=== PATIENT | male | born 1940 | race Caucasian/White ===

== ENCOUNTER 2022-08-26 11:13 | Inpatient (IN) | payer MEDICARE, BC ==
[~2022-08-26] VITALS: Ht 175.3 cm; Wt 98.6 kg
--- NOTE | 2022-08-26 | NUR ---
RECD PT IN BED, AWAKE, ALERT,ORIENTED X1, NO ACUTE DISTRESS NOTED, NEEDS ATTENDED TO.KEPT DRY AND CLEAN,IVF INFUSING WELL.
[2022-08-26] MEDS ORDERED: ONDANSETRON 4 MG/2 ML VIAL ONE (11:23)
[2022-08-26] MEDS ORDERED: PANTOPRAZOLE SODIUM 40 MG VIAL ONE ×2 (11:23→11:42)
--- NOTE | 2022-08-26 11:23 | NUR ---
Pt seen by MD for bedside eval. Safety measures in place. Will continue to monitor.
[2022-08-26] MEDS ORDERED: ONDANSETRON 4 MG/2 ML VIAL IV ONE (11:30)
[2022-08-26] MEDS ORDERED: PANTOPRAZOLE SODIUM 40 MG VIAL IV ONE (11:30)
[2022-08-26] MEDS ORDERED: PANTOPRAZOLE SODIUM IV 80 MG in IV DEXTROSE 5% 100 ML IV ONE (11:30)
[2022-08-26] MEDS ORDERED: IV NORMAL SALINE 500 ML BAG IV ONE (11:30)
[2022-08-26 11:37] LABS: HEMATOCRIT 32.1 % (36.7-47.1); MEAN CORPUSCULAR HEMOGLOBIN 29.7 uug (23.8-33.4); MEAN CORPUSCULAR VOLUME 91.5 fL (73.0-96.2); PLATELET COUNT (AUTO) 214 K/uL (152-348)
[2022-08-26] MEDS ORDERED: AMIO200T7 PO (11:40)
[2022-08-26] MEDS ORDERED: MENT3.5O TOP (11:40)
[2022-08-26] MEDS ORDERED: VITS42.53 TOP (11:40)
[2022-08-26] MEDS ORDERED: ATOR40TA PO (11:42)
[2022-08-26] MEDS ORDERED: CETI-90 PO (11:42)
[2022-08-26] MEDS ORDERED: AMLO2.5T2 PO (11:42)
[2022-08-26] MEDS ORDERED: CLOP75TA33 PO (11:43)
[2022-08-26] MEDS ORDERED: DOCU100C36 PO (11:43)
[2022-08-26] MEDS ORDERED: APIX2.5T PO (11:43)
[2022-08-26 11:45] LABS: CARBON DIOXIDE 25 mmol/L (21-32); CHLORIDE 111 mmol/L (98-107); CREATININE 2.2 mg/dL (0.6-1.3); GLUCOSE 232 mg/dL (74-106); POTASSIUM 4.6 mmol/L (3.5-5.1); UREA NITROGEN, BLOOD 39 mg/dL (7-18)
[2022-08-26] MEDS ORDERED: MENT396L TOP (11:45)
[2022-08-26] MEDS ORDERED: FURO-151 PO (11:45)
[2022-08-26] MEDS ORDERED: DAPA10TA PO (11:45)
[2022-08-26] MEDS ORDERED: SITA50TA PO (11:47)
[2022-08-26] MEDS ORDERED: LEVO750T46 PO (11:47)
[2022-08-26] MEDS ORDERED: INSU100V7 SUBCUT (11:47)
[2022-08-26] MEDS ORDERED: LEVO125C4 PO (11:49)
[2022-08-26] MEDS ORDERED: INSU100I4 SUBCUT (11:49)
[2022-08-26] MEDS ORDERED: MUPI22OI2 TOP (11:49)
[2022-08-26 11:50] LABS: ALANINE AMINOTRANSFERASE 29 U/L (16-63); ALKALINE PHOSPHATASE 117 U/L (50-136); ASPARTATE AMINOTRANSFERASE 20 U/L (15-37); BILIRUBIN,DIRECT 0.2 mg/dL (0.0-0.2); BILIRUBIN,TOTAL 0.4 mg/dL (0.2-1.0); TOTAL PROTEIN, SERUM 5.8 g/dL (6.4-8.2)
[2022-08-26] MEDS ORDERED: TRIA80OI2 TOP (11:52)
[2022-08-26] MEDS ORDERED: NYST15PO3 TOP (11:52)
[2022-08-26] MEDS ORDERED: SENN-18 PO (11:52)
[2022-08-26] MEDS ORDERED: [UNRECOGNIZED DRUG - CODE] PO (11:54)
[2022-08-26] MEDS ORDERED: ZINC30TA2 PO (11:54)
[2022-08-26] MEDS ORDERED: [UNRECOGNIZED DRUG - CODE] TOP (11:54)
[2022-08-26] MEDS ORDERED: BENZ200C53 PO (11:57)
[2022-08-26] MEDS ORDERED: ACET325T53 PO (11:57)
[2022-08-26] MEDS ORDERED: ZINC56.713 TOP (11:57)
[2022-08-26 11:58] LABS: LIPASE 33 U/L (73-393)
[2022-08-26] MEDS ORDERED: BISA10SU61 RC (12:00)
[2022-08-26] MEDS ORDERED: LACT10SO58 PO (12:00)
--- NOTE | 2022-08-26 12:35 | NUR ---
Patient cleaned of large amount of bloody stool at this time. remains at bedside, updated on plan of care, aware will be admitted to the hospital and has been seen by admitting MD. Side rails remain up, will continue to monitor.
--- NOTE | 2022-08-26 12:39 | NUR ---
COVID test in progress.
[2022-08-26] MEDS ORDERED: LACTULOSE PO SCH (12:45)
[2022-08-26] MEDS ORDERED: ONDANSETRON 4 MG/2 ML VIAL IV PRN (12:45)
[2022-08-26] MEDS ORDERED: MAGNESIUM HYDROXIDE 30 ML LIQUID UDC PO PRN (12:45)
[2022-08-26] MEDS ORDERED: Medication Not On Formulary EA (Benzonatate 200 MG) PO SCH (12:45)
[2022-08-26] MEDS ORDERED: REMEDY ESSENTIAL ZINC PASTE 113 GM TP PRN (12:45)
[2022-08-26] MEDS ORDERED: LACTULOSE 20 G/30 ML LIQUID UDC PO PRN (13:45)
--- NOTE | 2022-08-26 13:45 | NUR ---
Before admission, Autumn (tubular splitting machine tender) was informed about the pt as she cited out low BP. Gave Autumn additional information regarding pt's status and how pt is DNR and comfort measures, thus giving Autumn report. Transferred pt to 314 in stable condition. All paperwork given to Autumn & on call pharmacy technician.
[2022-08-26 13:56] VITALS: BP 92/57
[2022-08-26] MEDS ORDERED: BENZONATATE 100 MG CAPSULE PO PRN (14:30)
--- NOTE | 2022-08-26 14:41 | NUR ---
82 year old received from er via rkeiser to room 314 for gi bleed ,pt is axox1, call light with in reach ,family at bed side notified the admission
[2022-08-26] MEDS: IV NS 1000 ML 1,000 ML IV PRN (14:44)
[2022-08-26 15:30] VITALS: BP 96/57
[2022-08-26] MEDS ORDERED: INSULIN REGULAR, HUMAN 300 UNIT/3 ML VIAL SQ PRN (15:30)
[2022-08-26] MEDS ORDERED: DEXTROSE 50% 50 ML DISP.SYRIN IV PRN ×2 (15:30→15:59)
[2022-08-26] MEDS: DOCUSATE SODIUM 100 MG CAPSULE PO SCH (16:17)
[2022-08-26] MEDS: MUPIROCIN 2% OINT 22 GM TUBE NS SCH (16:18)
[2022-08-26] MEDS: TRIAMCINOLONE ACET 0.1% OINT 60 GM TUBE TOP SCH (16:18)
[2022-08-26] MEDS: ASCORBIC ACID 500 MG TABLET PO SCH (16:18)
[2022-08-26] MEDS: VITAMINS A AND D OINT 42 GM TUBE TP SCH (16:19)
[2022-08-26] MEDS: REMEDY ESSENTIAL ZINC PASTE 113 GM TP SCH (16:19)
[2022-08-26] MEDS: NYSTATIN POWDER 15 GM BOTTLE TOP SCH (16:19)
[2022-08-26] MEDS: BLOOD SUGAR DIAGNOSTIC 1 EACH STRIP VI SCH (16:20)
[2022-08-26] MEDS: PANTOPRAZOLE SODIUM 40 MG VIAL IV SCH (16:21)
[2022-08-26] MEDS ORDERED: INSULIN ASPART 8 UNIT SUBCUT SCH (16:30)
[2022-08-26] MEDS ORDERED: INSULIN REGULAR, HUMAN 300 UNITS/3 ML VIAL SQ SCH (16:30)
[2022-08-26] MEDS ORDERED: ZINC GLUCONATE 30 MG PO SCH (17:00)
[2022-08-26] MEDS ORDERED: [UNRECOGNIZED DRUG - OTHER] TOP SCH (17:00)
[2022-08-26] MEDS ORDERED: Medication Not On Formulary EA (Ascorbic Acid (Vitamin C TAB) 1,000 MG) PO SCH (17:00)
[2022-08-26] MEDS ORDERED: MENTHOL TOP SCH (17:00)
[2022-08-26] MEDS ORDERED: ZINC OXIDE TOP SCH (17:00)
[2022-08-26] MEDS ORDERED: ZINC OXIDE OINT 30 GM TUBE TOP SCH (17:00)
[2022-08-26 17:01] LABS: HEMATOCRIT 29.4 % (36.7-47.1)
--- NOTE | 2022-08-26 19:00 | NUR ---
RECD PT IN BED,ALERT,ORIENTED X 1,AFEBRILE, ON ROOM AIR,IVF INFUSING WELL.NO ACUTE DISTRESS NOTED.
[2022-08-26 20:30] VITALS: BP 109/60
[2022-08-26] MEDS: SENNOSIDES 1 TABLET PO SCH (21:00)
[2022-08-26] MEDS ORDERED: INSULIN GLARGINE HUM REC ANLOG 21 UNIT SUBCUT SCH (21:00)
[2022-08-26] MEDS: ATORVASTATIN 40 MG TABLET PO SCH (21:00)
[2022-08-26] MEDS ORDERED: INSULIN GLARGINE,HUM 300 UNITS/3 ML CARTRIDGE SQ SCH (21:00)
[2022-08-26 22:08] LABS: HEMATOCRIT 26.4 % (36.7-47.1)
--- NOTE | 2022-08-26 23:00 | NUR ---
oral care rendered. maintained on npo, had a moderate amt of soft bloody stool, cleaned and kept dry.repositioned for comfort.no distress noted.on tele sinu 80.dnr/dni status.
[2022-08-27] VITALS (8 sets, daily range): BP systolic 102–117; BP diastolic 42–60
[2022-08-27] MEDS: BLOOD SUGAR DIAGNOSTIC 1 EACH STRIP VI SCH ×4 (00:13→18:44)
[2022-08-27] MEDS: INSULIN REGULAR, HUMAN 300 UNIT/3 ML VIAL SQ PRN ×2 (00:31→06:36)
--- NOTE | 2022-08-27 02:16 | NUR ---
slept at long intervals. bs at 12mn 142 reg insulin 2u given , asymptomatic of any diabetic crisis.
[2022-08-27] MEDS: IV NS 1000 ML 1,000 ML IV PRN (04:42)
--- NOTE | 2022-08-27 06:24 | NUR ---
NPO MAINTAINED, ORAL CARE DONE. RESTED FAIRLY WELL.ENDORSED TO AM NURSE IN FAIR CONDITION
[2022-08-27 06:53] LABS: MEAN CORPUSCULAR HEMOGLOBIN 29.5 uug (23.8-33.4); MEAN CORPUSCULAR VOLUME 91.6 fL (73.0-96.2); PLATELET COUNT (AUTO) 184 K/uL (152-348)
[2022-08-27] MEDS: LEVOTHYROXINE SODIUM 125 MCG TABLET PO SCH (07:00)
[2022-08-27 07:05] LABS: CARBON DIOXIDE 24 mmol/L (21-32); CHLORIDE 115 mmol/L (98-107); CHOLESTEROL 74 mg/dL (<200); CREATININE 2.2 mg/dL (0.6-1.3); GLUCOSE 133 mg/dL (74-106); HDL CHOLESTEROL 29 mg/dL (40-60); MAGNESIUM 2.1 mg/dL (1.8-2.4); PHOSPHOROUS 4.4 mg/dL (2.5-4.9); POTASSIUM 4.5 mmol/L (3.5-5.1); TRIGLYCERIDES 143 MG/DL (30-150); UREA NITROGEN, BLOOD 43 mg/dL (7-18)
[2022-08-27 07:19] LABS: THYROID STIMULATING HORMONE 1.044 mIU/mL (0.358-3.740)
--- NOTE | 2022-08-27 08:00 | NUR ---
Pt had minimal bright red BM. Pt is in no acute distress. Kept pt npo. Will continue to monitor patient.
[2022-08-27] MEDS: DOCUSATE SODIUM 100 MG CAPSULE PO SCH ×2 (08:47→18:33)
[2022-08-27] MEDS: PANTOPRAZOLE SODIUM 40 MG VIAL IV SCH ×2 (08:47→18:31)
[2022-08-27] MEDS: MUPIROCIN 2% OINT 22 GM TUBE NS SCH (08:47)
[2022-08-27] MEDS: CETIRIZINE HCL 10 MG TABLET PO SCH (08:48)
[2022-08-27] MEDS: LINAGLIPTIN 5 MG TABLET PO SCH (08:50)
[2022-08-27] MEDS: ASCORBIC ACID 500 MG TABLET PO SCH ×2 (08:50→18:31)
[2022-08-27] MEDS: ZINC SULFATE 220 MG CAPSULE PO SCH (08:51)
[2022-08-27] MEDS: AMIODARONE HCL 200 MG TABLET PO SCH (08:52)
[2022-08-27] MEDS: VITAMINS A AND D OINT 42 GM TUBE TP SCH ×2 (08:53→18:34)
[2022-08-27] MEDS: NYSTATIN POWDER 15 GM BOTTLE TOP SCH ×2 (08:53→18:33)
[2022-08-27] MEDS: DAPAGLIFLOZIN PROPANEDIOL 5 MG TABLET PO SCH (08:53)
[2022-08-27] MEDS: TRIAMCINOLONE ACET 0.1% OINT 60 GM TUBE TOP SCH ×2 (08:53→18:33)
[2022-08-27] MEDS: REMEDY ESSENTIAL ZINC PASTE 113 GM TP SCH ×2 (08:54→18:34)
[2022-08-27] MEDS ORDERED: BISACODYL 10 MG SUPP.RECT RC PRN (09:00)
[2022-08-27] MEDS ORDERED: LEVOTHYROXINE SODIUM 125 MCG PO SCH (09:00)
[2022-08-27] MEDS ORDERED: MENTHOL TOP SCH (09:00)
[2022-08-27] MEDS ORDERED: Medication Not On Formulary EA (Sitagliptin Phosphate (Januvia) 50 MG) PO SCH (09:00)
[2022-08-27] MEDS ORDERED: VIT E TOP SCH (09:00)
[2022-08-27] MEDS ORDERED: DIMETH TOP SCH (09:00)
[2022-08-27] MEDS ORDERED: ALOE VERA TOP SCH (09:00)
[2022-08-27] MEDS ORDERED: [UNRECOGNIZED DRUG - OTHER] TOP SCH (09:00)
[2022-08-27] MEDS ORDERED: GOLYTELY 4000 ML BOTTLE PO ONE (10:15)
[2022-08-27 11:19] LABS: HEMATOCRIT 22.8 % (36.7-47.1)
--- NOTE | 2022-08-27 14:00 | NUR ---
Attempt to get consent for EGD and COLONOSCOPY Mrs Jake Parker called [phone] from face sheet got dr's office not related to patient. Read CM notes got phone number [phone] message left. Awaiting call back.
[2022-08-27] MEDS: IV 1/2NS 1000 ML 1,000 ML IV PRN (15:09)
--- NOTE | 2022-08-27 18:30 | NUR ---
Notified OPTICIAN MANAGER ROMARIO Lund. pt having active bleeding noted. LARGE BM with bright red blood and clots. Golytely almost done. H/H ordered stat. Awaiting H/h result. PT looking more pale. Will continue to monitor BS 108. Echo being done.
[2022-08-27] MEDS: MUPIROCIN 2% OINT 22 GM TUBE TP SCH (18:34)
--- NOTE | 2022-08-27 18:57 | NUR ---
multiple attempt called in for consent [phone] for mrs felix no call back. Will endorse to on coming shift.
[2022-08-27 19:14] LABS: HEMATOCRIT 20.9 % (36.7-47.1)
[2022-08-27] MEDS: ATORVASTATIN 40 MG TABLET PO SCH (21:27)
[2022-08-27] MEDS: SENNOSIDES 1 TABLET PO SCH (21:27)
--- NOTE | 2022-08-27 23:25 | NUR ---
Started 1 unit PRBC, blood transfusion protocol followed.
[2022-08-28] MEDS: BLOOD SUGAR DIAGNOSTIC 1 EACH STRIP VI SCH ×4 (00:07→17:12)
[2022-08-28 00:13] VITALS: BP 103/45
[2022-08-28 01:24] VITALS: BP 108/46
--- NOTE | 2022-08-28 01:47 | NUR ---
Blood transfusion completed at this time, patient tolerated well with no adverse/allergic reactions noted.
[2022-08-28 04:05] VITALS: BP 104/48
[2022-08-28 04:19] LABS: HEMATOCRIT 21.5 % (36.7-47.1); MEAN CORPUSCULAR HEMOGLOBIN 29.7 uug (23.8-33.4); MEAN CORPUSCULAR VOLUME 89.5 fL (73.0-96.2); PLATELET COUNT (AUTO) 153 K/uL (152-348)
[2022-08-28 04:37] LABS: CARBON DIOXIDE 27 mmol/L (21-32); CHLORIDE 113 mmol/L (98-107); CREATININE 1.8 mg/dL (0.6-1.3); GLUCOSE 107 mg/dL (74-106); MAGNESIUM 1.9 mg/dL (1.8-2.4); POTASSIUM 3.4 mmol/L (3.5-5.1); UREA NITROGEN, BLOOD 33 mg/dL (7-18)
[2022-08-28] MEDS: LEVOTHYROXINE SODIUM 125 MCG TABLET PO SCH (06:29)
[2022-08-28] MEDS: IV 1/2NS 1000 ML 1,000 ML IV PRN (07:30)
[2022-08-28] MEDS: DOCUSATE SODIUM 100 MG CAPSULE PO SCH ×2 (08:51→17:07)
[2022-08-28] MEDS: ASCORBIC ACID 500 MG TABLET PO SCH ×2 (08:51→17:07)
[2022-08-28] MEDS: AMIODARONE HCL 200 MG TABLET PO SCH (08:51)
[2022-08-28] MEDS: PANTOPRAZOLE SODIUM 40 MG VIAL IV SCH ×2 (08:51→17:09)
[2022-08-28] MEDS: ZINC SULFATE 220 MG CAPSULE PO SCH (08:52)
[2022-08-28] MEDS: TRIAMCINOLONE ACET 0.1% OINT 60 GM TUBE TOP SCH ×2 (08:52→17:08)
[2022-08-28] MEDS: CETIRIZINE HCL 10 MG TABLET PO SCH (08:52)
[2022-08-28] MEDS: MUPIROCIN 2% OINT 22 GM TUBE TP SCH ×2 (08:52→17:08)
[2022-08-28] MEDS: LINAGLIPTIN 5 MG TABLET PO SCH (08:52)
[2022-08-28] MEDS: NYSTATIN POWDER 15 GM BOTTLE TOP SCH ×2 (08:53→17:08)
[2022-08-28] MEDS: VITAMINS A AND D OINT 42 GM TUBE TP SCH ×2 (08:53→17:08)
[2022-08-28] MEDS: REMEDY ESSENTIAL ZINC PASTE 113 GM TP SCH ×2 (08:53→17:08)
[2022-08-28] MEDS: DAPAGLIFLOZIN PROPANEDIOL 5 MG TABLET PO SCH (08:59)
[2022-08-28] MEDS ORDERED: POTASSIUM CHLORIDE 50 ML IV ONE (09:45)
[2022-08-28 11:42] VITALS: BP 101/48
[2022-08-28 16:00] VITALS: BP 106/50
--- NOTE | 2022-08-28 18:00 | NUR ---
No active bleeding noted throughout shift. Pt consent signed preop done. Call light is within reach.
--- NOTE | 2022-08-28 20:06 | NUR ---
Patient in surgery for EGD colonoscopy. Addendum: 08/28/22 at 2006 by ABDELRAHMAN RUIZ RN Amended: Links added.
[2022-08-28] MEDS ORDERED: PROPOFOL 200 MG/20 ML BOTTLE ONE (20:42)
[2022-08-28] MEDS ORDERED: LIDOCAINE-MPF 2% 5 ML VIAL ONE (20:42)
[2022-08-28 20:52] VITALS: BP 123/61
--- NOTE | 2022-08-28 20:52 | NUR ---
Patient back from EGD Colonoscopy via hospital bed accompanied by 2 RN's. Patient AAOx2. In no apparent distress. Denies any pain or SOB. O2 at 3LPM via NC in place. O2 sat at 3LPM via NC in place. NSR on tele with HR of 74/min. Pt to resume CCHO diet. DNR [id number].(till 199908/29/22). IV site on left AC intact and patent. Continue to monitor.
[2022-08-28] MEDS: ATORVASTATIN 40 MG TABLET PO SCH (21:17)
[2022-08-28] MEDS: SENNOSIDES 1 TABLET PO SCH (21:17)
[2022-08-29] VITALS (14 sets, daily range): BP systolic 101–123; BP diastolic 39–56
[2022-08-29] MEDS: BLOOD SUGAR DIAGNOSTIC 1 EACH STRIP VI SCH ×6 (00:20→20:08)
[2022-08-29] MEDS: IV 1/2NS 1000 ML 1,000 ML IV PRN ×2 (00:22→13:21)
--- NOTE | 2022-08-29 05:48 | NUR ---
No active bleeding noted. Incentive spirometer provided and able to follow direction of use. IVF infusing. O2 at 3LPM via NC remains in place. NSR on tele with HR of 69/min. Safety measure maintained and call light within reached.
[2022-08-29] MEDS: LEVOTHYROXINE SODIUM 125 MCG TABLET PO SCH (06:04)
[2022-08-29 06:33] LABS: HEMATOCRIT 21.3 % (36.7-47.1); MEAN CORPUSCULAR HEMOGLOBIN 29.6 uug (23.8-33.4); MEAN CORPUSCULAR VOLUME 91.4 fL (73.0-96.2); PLATELET COUNT (AUTO) 150 K/uL (152-348)
[2022-08-29 06:53] LABS: CARBON DIOXIDE 27 mmol/L (21-32); CHLORIDE 113 mmol/L (98-107); CREATININE 1.6 mg/dL (0.6-1.3); GLUCOSE 91 mg/dL (74-106); MAGNESIUM 2.2 mg/dL (1.8-2.4); POTASSIUM 3.4 mmol/L (3.5-5.1); UREA NITROGEN, BLOOD 21 mg/dL (7-18)
[2022-08-29] MEDS ORDERED: DEXTROSE 50% 50 ML DISP.SYRIN IV PRN (07:30)
--- NOTE | 2022-08-29 08:00 | NUR ---
PATIENT AWAKE ALERT AND ABLE TO FOLLOW SIMPLE COMMAND, DENIES PAIN OR DISTRESS. NOTED SLIGHT WHEEZING, INSTRUCTED USE INCENTIVE SPIROMETER. CONTINUE WITH O2 AT 3L NC SATURATING 95-97%
[2022-08-29] MEDS: CETIRIZINE HCL 10 MG TABLET PO SCH (08:33)
[2022-08-29] MEDS: LINAGLIPTIN 5 MG TABLET PO SCH (08:33)
[2022-08-29] MEDS: PANTOPRAZOLE SODIUM 40 MG VIAL IV SCH ×2 (08:33→17:15)
[2022-08-29] MEDS: DOCUSATE SODIUM 100 MG CAPSULE PO SCH ×2 (08:33→17:14)
[2022-08-29] MEDS: ZINC SULFATE 220 MG CAPSULE PO SCH (08:33)
[2022-08-29] MEDS: ASCORBIC ACID 500 MG TABLET PO SCH ×2 (08:33→17:15)
[2022-08-29] MEDS: DAPAGLIFLOZIN PROPANEDIOL 5 MG TABLET PO SCH (08:34)
[2022-08-29] MEDS: AMIODARONE HCL 200 MG TABLET PO SCH (08:34)
[2022-08-29] MEDS: NYSTATIN POWDER 15 GM BOTTLE TOP SCH ×2 (08:35→17:15)
[2022-08-29] MEDS: TRIAMCINOLONE ACET 0.1% OINT 60 GM TUBE TOP SCH ×2 (08:35→17:15)
[2022-08-29] MEDS: MUPIROCIN 2% OINT 22 GM TUBE TP SCH ×2 (08:35→17:16)
[2022-08-29] MEDS: VITAMINS A AND D OINT 42 GM TUBE TP SCH ×2 (08:36→17:16)
[2022-08-29] MEDS: REMEDY ESSENTIAL ZINC PASTE 113 GM TP SCH ×2 (08:36→17:16)
[2022-08-29 09:44] LABS: EOSINOPHILS % (MANUAL) 8 % (0-8); LYMPHOCYTES % (MANUAL) 18 % (20-40); MONOCYTES % (MANUAL) 6 % (2-10); NEUTROPHILS % (MANUAL) 66 % (42-75); REACTIVE LYMPHOCYTES 2 % (0-0)
--- NOTE | 2022-08-29 10:30 | NUR ---
HOSPITALIST MADE AWARE OF LOW HH WITH ORDER TO TRANSFUSE 2 UNITS PRBC
[2022-08-29] MEDS: INSULIN REGULAR, HUMAN 300 UNIT/3 ML VIAL SQ PRN (11:18)
[2022-08-29] MEDS ORDERED: POTASSIUM CHLORIDE 10 MEQ TAB.PRT.SR PO ONE (12:00)
[2022-08-29 13:25] LABS: EOSINOPHILS % (MANUAL) 8 % (0-8); LYMPHOCYTES % (MANUAL) 18 % (20-40); MONOCYTES % (MANUAL) 6 % (2-10); NEUTROPHILS % (MANUAL) 66 % (42-75)
[2022-08-29 13:26] LABS: REACTIVE LYMPHOCYTES 2 % (0-0)
--- NOTE | 2022-08-29 14:05 | NUR ---
AWAITING BLOOD FROM [facility] 2 UNITS
--- NOTE | 2022-08-29 14:54 | NUR ---
FIRST UNIT OF BLOOD STARTED RIGHT HAND #20 AND CLOSELY MONITORED
[2022-08-29] MEDS ORDERED: ALBUTEROL SULFATE 2.5 MG/ 0.5 ML NEBU NEB PRN (15:00)
--- NOTE | 2022-08-29 17:19 | NUR ---
blood transfusion completed without any reaction
--- NOTE | 2022-08-29 19:15 | NUR ---
2nd unit of PRBC started. Will monitor for any adverse reaction. Patient awake, alert and oriented at this time. In no apparent distress. No complain of pain or SOB. IV site on right FA intact and patent. NSR on tele with HR of 74/min.
--- NOTE | 2022-08-29 19:45 | NUR ---
No adverse reaction noted from blood transfusion. Continue to infuse and continue to monitor.
[2022-08-29] MEDS: SENNOSIDES 1 TABLET PO SCH (20:02)
[2022-08-29] MEDS: ATORVASTATIN 40 MG TABLET PO SCH (20:02)
[2022-08-29] MEDS ORDERED: INSULIN GLARGINE,HUM 300 UNITS/3 ML CARTRIDGE SQ SCH (21:00)
--- NOTE | 2022-08-29 22:00 | NUR ---
Completed 1 unit of blood with no adverse effect noted.
[2022-08-30] VITALS: BP 109/52
[2022-08-30 04:00] VITALS: BP 114/57
--- NOTE | 2022-08-30 05:20 | NUR ---
NSR on tele with HR of 70/min. O2 at 3LPM via NC remains in place. Needs assessed and attended to. Safety measure maintained and call light within reached.
[2022-08-30] MEDS: LEVOTHYROXINE SODIUM 125 MCG TABLET PO SCH (06:08)
[2022-08-30] MEDS: BLOOD SUGAR DIAGNOSTIC 1 EACH STRIP VI SCH ×2 (06:37→11:33)
[2022-08-30 06:41] LABS: HEMATOCRIT 28.1 % (36.7-47.1); MEAN CORPUSCULAR HEMOGLOBIN 29.7 uug (23.8-33.4); MEAN CORPUSCULAR VOLUME 89.1 fL (73.0-96.2); PLATELET COUNT (AUTO) 145 K/uL (152-348)
[2022-08-30 06:53] LABS: CARBON DIOXIDE 27 mmol/L (21-32); CHLORIDE 109 mmol/L (98-107); CREATININE 1.5 mg/dL (0.6-1.3); GLUCOSE 94 mg/dL (74-106); MAGNESIUM 2.1 mg/dL (1.8-2.4); PHOSPHOROUS 2.8 mg/dL (2.5-4.9); POTASSIUM 3.4 mmol/L (3.5-5.1); UREA NITROGEN, BLOOD 19 mg/dL (7-18)
--- NOTE | 2022-08-30 07:45 | NUR ---
AWAKE ALERT AND VERBALLY RESPONSIVE, DENIES PAIN, NO SS OF DISTRESS WITH 2L O2 VIA NC SR ON MONITOR. SEEN BY DR CORONA AND CHANGED STATUS TO TELE. SR ON MOITOR
[2022-08-30] MEDS ORDERED: FUROSEMIDE 20 MG/2 ML VIAL IV ONE (08:00)
[2022-08-30] MEDS: DOCUSATE SODIUM 100 MG CAPSULE PO SCH (08:25)
[2022-08-30] MEDS: LINAGLIPTIN 5 MG TABLET PO SCH (08:26)
[2022-08-30] MEDS: PANTOPRAZOLE SODIUM 40 MG VIAL IV SCH (08:26)
[2022-08-30] MEDS: CETIRIZINE HCL 10 MG TABLET PO SCH (08:27)
[2022-08-30] MEDS: TRIAMCINOLONE ACET 0.1% OINT 60 GM TUBE TOP SCH (08:27)
[2022-08-30] MEDS: AMIODARONE HCL 200 MG TABLET PO SCH (08:27)
[2022-08-30] MEDS: ASCORBIC ACID 500 MG TABLET PO SCH (08:27)
[2022-08-30] MEDS: NYSTATIN POWDER 15 GM BOTTLE TOP SCH (08:28)
[2022-08-30] MEDS: MUPIROCIN 2% OINT 22 GM TUBE TP SCH (08:28)
[2022-08-30] MEDS: REMEDY ESSENTIAL ZINC PASTE 113 GM TP SCH (08:28)
[2022-08-30] MEDS: VITAMINS A AND D OINT 42 GM TUBE TP SCH (08:29)
[2022-08-30] MEDS: DAPAGLIFLOZIN PROPANEDIOL 5 MG TABLET PO SCH (08:41)
[2022-08-30] MEDS: ZINC SULFATE 220 MG CAPSULE PO SCH (08:41)
[2022-08-30] MEDS ORDERED: POTASSIUM CHLORIDE 10 MEQ TAB.PRT.SR PO ONE (09:30)
[2022-08-30] MEDS ORDERED: CALCIUM POLYCARBOPHIL 625 MG TABLET PO SCH (09:30)
[2022-08-30] MEDS ORDERED: APIXABAN 2.5 MG TABLET PO SCH (10:00)
--- NOTE | 2022-08-30 10:00 | NUR ---
SEEN BY HOSPITALIST AND DR CORREA FOR [facility]HPRO SEE NOTES. BOTH AGREED SN[facility] PARTS IDENTIFIER NOTIFIED SEE NOTES
[2022-08-30] MEDS ORDERED: PSYLLIUM SEED PACKET PO SCH (11:00)
--- NOTE | 2022-08-30 11:00 | NUR ---
TRIED TO WEAN PATIENT FROM O2 FOR 30 MINS O2 SAT SHOWED 85%. PLACED BACK ON O2 2L NC SATURATING 97%
[2022-08-30 11:25] VITALS: BP 113/59
[2022-08-30] MEDS: INSULIN REGULAR, HUMAN 300 UNIT/3 ML VIAL SQ PRN (11:35)
[2022-08-30] MEDS ORDERED: PANT40TA2 PO (11:55)
[2022-08-30] MEDS ORDERED: DOCU-141 PO (11:55)
--- NOTE | 2022-08-30 12:00 | NUR ---
SUPERVISOR [employer] CALLED AND SAID PATIENT TO GO TO [facility] AWARE OF THE TRANSFER.
--- NOTE | 2022-08-30 15:41 | NUR ---
REPORT GIVEN TO [facility] FOR [facility]
[2022-08-30] MEDS ORDERED: GLUCERNA SHAKE 237 ML CAN PO SCH (17:00)
[2022-08-31] MEDS ORDERED: CLOPIDOGREL 75 MG TABLET PO SCH (10:00)
== END 2022-08-30 16:45 | DRG 377 ==
LOC: ER 11:31 → TELE3 12:26 → MEDSURG3 08-30 12:08
PROVIDERS: ADMIT Nurse Practitioner Acute Care; ATTEND Nurse Practitioner Acute Care
PROC: 30233N1 Transfusion of Nonautologous Red Blood Cells into Peripheral Vein, Percutaneous Approach (ICD-10-PCS; principal; 2022-08-27)
PROC: 30233N1 Transfusion of Nonautologous Red Blood Cells into Peripheral Vein, Percutaneous Approach (ICD-10-PCS; 2022-08-27)
PROC: 0DJD8ZZ Inspection of Lower Intestinal Tract, Via Natural or Artificial Opening Endoscopic (ICD-10-PCS; 2022-08-28)
DX: K29.01 Acute gastritis with bleeding (principal); N17.0 Acute kidney failure with tubular necrosis; D62 Acute posthemorrhagic anemia; G91.2 (Idiopathic) normal pressure hydrocephalus; D68.59 Other primary thrombophilia; I45.2 Bifascicular block; K64.8 Other hemorrhoids; Z98.2 Presence of cerebrospinal fluid drainage device; K57.30 Diverticulosis of large intestine without perforation or abscess without bleeding; N18.30 Chronic kidney disease, stage 3 unspecified; I12.9 Hypertensive chronic kidney disease with stage 1 through stage 4 chronic kidney disease, or unspecified chronic kidney disease; Z79.01 Long term (current) use of anticoagulants; Z79.84 Long term (current) use of oral hypoglycemic drugs; Z83.3 Family history of diabetes mellitus; Z86.73 Personal history of transient ischemic attack (TIA), and cerebral infarction without residual deficits; Z79.02 Long term (current) use of antithrombotics/antiplatelets; Z79.899 Other long term (current) drug therapy; Z79.4 Long term (current) use of insulin; I65.29 Occlusion and stenosis of unspecified carotid artery; E78.5 Hyperlipidemia, unspecified; E03.9 Hypothyroidism, unspecified; E11.22 Type 2 diabetes mellitus with diabetic chronic kidney disease; K92.0 Hematemesis; Z66 Do not resuscitate; Z51.5 Encounter for palliative care
CPT/HCPCS: 36415; 70030-TC; 71045; 76770; 83690; 83735; 84100; 84443; 85018; 85025; 85730; 86850; 86900; 86901; 86920; 88313-TC; 88342; 93005; 93307; 94640; A4663; A6209; A6213; C9113; G0378; J1815; J1940; J2405; J3480; J3490; J3590; J7040; P9016

== ENCOUNTER 2023-11-30 18:02 | Inpatient (IN) | payer MEDICARE, BC ==
[~2023-11-30] VITALS: Ht 172.7 cm; Wt 97.5 kg
[~2023-11-30 18:02] MED LIST: ACET325T53 PO; AMIO200T7 PO; AMLO2.5T2 PO; APIX2.5T PO; ATOR40TA PO; BENZ200C53 PO; BISA10SU61 RC; CETI-90 PO; CLOP75TA33 PO; DAPA10TA PO; DOCU-141 PO; DOCU100C36 PO; FURO-151 PO; INSU100I4 SUBCUT; LACT10SO58 PO; LEVO125C4 PO; MENT3.5O TOP; MENT396L TOP; PANT40TA2 PO; SENN-18 PO; SITA50TA PO; TRIA80OI2 TOP; VITS42.53 TOP; ZINC30TA2 PO; ZINC56.713 TOP; [UNRECOGNIZED DRUG - CODE] PO; [UNRECOGNIZED DRUG - CODE] TOP
[2023-11-30] MEDS ORDERED: LOPE2TAB25 PO (18:31)
[2023-11-30] MEDS ORDERED: MULT-213 PO (18:31)
[2023-11-30] MEDS ORDERED: IPRA3AMP23 NEB (18:31)
[2023-11-30] MEDS ORDERED: LEVO100T10 PO (18:31)
[2023-11-30] MEDS ORDERED: NYST15CR TP (18:31)
[2023-11-30] MEDS ORDERED: DIPH25TA23 PO (18:31)
[2023-11-30] MEDS ORDERED: NYST60PO TP (18:31)
[2023-11-30] MEDS ORDERED: INSU3INS6 SQ (18:31)
[2023-11-30 18:52] LABS: BASOPHILS % (AUTO) 0.4 % (0.0-2.0); EOSINOPHILS # (AUTO) 0.7 K/uL (0.0-0.7); EOSINOPHILS % (AUTO) 5.9 % (0.0-7.0); HEMATOCRIT 45.8 % (36.7-47.1); HEMOGLOBIN 14.5 g/dL (12.5-16.3); LYMPHOCYTES # (AUTO) 0.6 K/uL (0.8-4.8); LYMPHOCYTES % (AUTO) 4.8 % (20.5-51.5); MEAN CORPUSCULAR HEMOGLOBIN 29.5 uug (23.8-33.4); MEAN CORPUSCULAR HGB CONC 32 g/dL (32.5-36.3); MONOCYTES # (AUTO) 0.9 K/uL (0.1-1.30); MONOCYTES % (AUTO) 8.2 % (0.0-11.0); NEUTROPHILS # (AUTO) 9.3 K/uL (1.8-8.9); NEUTROPHILS % (AUTO) 80.7 % (38.5-71.5); PLATELET COUNT (AUTO) 243 K/uL (152-348); RED BLOOD CELL COUNT(AUTO) 4.92 MIL/uL (4.06-5.63); RED CELL DISTRIBUTION WIDTH 16.5 % (12.1-16.2); WHITE BLOOD COUNT (AUTO) 11.5 K/uL (3.6-10.2)
[2023-11-30 18:55] LABS: DIFFERENTIAL COMMENT 1
[2023-11-30 19:01] LABS: CARBON DIOXIDE 28 mmol/L (21-32); CHLORIDE 102 mmol/L (98-107); GLUCOSE 182 mg/dL (74-106); POTASSIUM 3.6 mmol/L (3.5-5.1); SODIUM SERUM 143 mmol/L (136-145); UREA NITROGEN, BLOOD 35 mg/dL (7-18)
[2023-11-30 19:15] LABS: LACTIC ACID 2.1 mmol/L (0.4-2.0)
[2023-11-30 19:18] LABS: ALANINE AMINOTRANSFERASE 23 U/L (16-63); ALBUMIN 3.7 g/dL (3.4-5.0); ALKALINE PHOSPHATASE 139 U/L (50-136); ASPARTATE AMINOTRANSFERASE 23 U/L (15-37); BILIRUBIN,DIRECT 0.3 mg/dL (0.0-0.2); BILIRUBIN,TOTAL 0.8 mg/dL (0.2-1.0); NT-PRO BNP 286 pg/mL (0-125); TOTAL PROTEIN, SERUM 7.8 g/dL (6.4-8.2)
[2023-11-30 19:22] LABS: CALCIUM 9.4 mg/dL (8.5-10.1)
[2023-11-30] MEDS ORDERED: AZITHROMYCIN 250 MG TABLET ONE (19:29)
[2023-11-30] MEDS ORDERED: CEFTRIAXONE /D5W 50ML IVPB **ER PYXIS IV ONE (19:29)
[2023-11-30] MEDS ORDERED: DEXAMETHASONE SOD PHOSPHATE 4 MG INJ ONE ×2 (19:29→19:40)
[2023-11-30] MEDS ORDERED: METRONIDAZOLE 500 MG/NS 100ML 100 ML IV ONE (19:30)
[2023-11-30] MEDS: IV NORMAL SALINE 1000 ML BAG IV ONE (19:38)
[2023-11-30] MEDS: CEFTRIAXONE 2 G in IV DEXTROSE 5% 100 ML IV ONE (19:38)
[2023-11-30] MEDS: AZITHROMYCIN 250 MG TABLET PO ONE (19:43)
[2023-11-30] MEDS: DEXAMETHASONE SOD PHOSPHATE 4 MG INJ IV ONE (19:43)
[2023-11-30 19:45] VITALS: O2SAT 96
[2023-11-30] MEDS: METRONIDAZOLE 500 MG/NS 100 ML PIGGYBACK IV ONE (20:38)
[2023-11-30] MEDS ORDERED: ONDANSETRON 4 MG/2 ML VIAL IV PRN (21:00)
[2023-11-30] MEDS ORDERED: MAGNESIUM HYDROXIDE 30 ML LIQUID UDC PO PRN (21:00)
[2023-11-30] MEDS ORDERED: ALBUTEROL SULFATE 2.5 MG/3 ML NEBU NEB PRN (21:00)
[2023-11-30] MEDS ORDERED: ACETAMINOPHEN 325 MG TABLET PO PRN (21:00)
[2023-11-30] MEDS ORDERED: IPRATROPIUM BROMIDE 0.5 MG/2.5 ML NEBU NEB PRN (21:00)
[2023-11-30] MEDS: ENOXAPARIN SODIUM 30 MG/0.3 ML DISP.SYRIN SQ SCH (22:46)
[2023-11-30] MEDS ORDERED: levoFLOXacin 500 MG/D5W 100 ML ONE (22:54)
[2023-11-30] MEDS: levoFLOXacin 500 MG/D5W 500 MG in PREMIXED 1 EACH IV ONE (23:14)
[2023-11-30] MEDS: IV 1/2NS 1000 ML 1,000 ML IV PRN (23:15)
[2023-11-30 23:48] VITALS: BP 114/66; TEMP 98.8; O2SAT 96
[2023-12-01] VITALS (9 sets, daily range): BP systolic 105–135; BP diastolic 47–67; TEMP 97.6–98.4; O2SAT 96–100
[2023-12-01] MEDS: PANTOPRAZOLE SODIUM 40 MG TABLET.DR PO SCH (06:48)
[2023-12-01 07:33] LABS: BASOPHILS % (AUTO) 0.4 % (0.0-2.0); EOSINOPHILS % (AUTO) 0.1 % (0.0-7.0); HEMATOCRIT 38.7 % (36.7-47.1); HEMOGLOBIN 12.5 g/dL (12.5-16.3); LYMPHOCYTES # (AUTO) 0.4 K/uL (0.8-4.8); LYMPHOCYTES % (AUTO) 11.2 % (20.5-51.5); MEAN CORPUSCULAR HEMOGLOBIN 30.2 uug (23.8-33.4); MEAN CORPUSCULAR HGB CONC 32 g/dL (32.5-36.3); MEAN CORPUSCULAR VOLUME 93.2 fL (73.0-96.2); MONOCYTES % (AUTO) 1.3 % (0.0-11.0); NEUTROPHILS # (AUTO) 3.3 K/uL (1.8-8.9); PLATELET COUNT (AUTO) 195 K/uL (152-348); RED BLOOD CELL COUNT(AUTO) 4.15 MIL/uL (4.06-5.63); RED CELL DISTRIBUTION WIDTH 16.4 % (12.1-16.2); WHITE BLOOD COUNT (AUTO) 3.8 K/uL (3.6-10.2)
[2023-12-01 07:50] LABS: CALCIUM 9.2 mg/dL (8.5-10.1); CARBON DIOXIDE 27 mmol/L (21-32); CHLORIDE 104 mmol/L (98-107); CREATININE 1.7 mg/dL (0.6-1.3); GLUCOSE 197 mg/dL (74-106); PHOSPHOROUS 3.2 mg/dL (2.5-4.9); SODIUM SERUM 143 mmol/L (136-145); UREA NITROGEN, BLOOD 32 mg/dL (7-18)
[2023-12-01 07:58] LABS: DIFFERENTIAL COMMENT 1
[2023-12-01 08:05] LABS: POTASSIUM 4.1 mmol/L (3.5-5.1)
[2023-12-01] MEDS ORDERED: DEXTROSE 50% 50 ML DISP.SYRIN IV PRN (14:15)
[2023-12-01] MEDS ORDERED: TRIA15CR4 TP (14:40)
[2023-12-01] MEDS ORDERED: BETA45OI2 TOP (14:40)
[2023-12-01] MEDS ORDERED: Medication Not On Formulary EA (Loperamide Hcl (Loperamide) 2 MG) PO PRN (15:00)
[2023-12-01] MEDS: BLOOD SUGAR DIAGNOSTIC 1 EACH STRIP VI SCH (16:44)
[2023-12-01] MEDS ORDERED: LOPERAMIDE HCL 2 MG CAPSULE PO PRN (16:45)
[2023-12-01] MEDS: INSULIN REGULAR, HUMAN 1000 UNIT/10 ML VIAL SQ PRN (16:46)
[2023-12-01] MEDS ORDERED: Medication Not On Formulary EA (Ascorbic Acid (Vitamin C TAB) 1,000 MG) PO SCH (17:00)
[2023-12-01] MEDS: ASCORBIC ACID 500 MG TABLET PO SCH (17:16)
[2023-12-01] MEDS: REMEDY ESSENTIAL ZINC PASTE 113 GM TP PRN (17:46)
[2023-12-01] MEDS: INSULIN GLARGINE,HUM 300 UNITS/3 ML CARTRIDGE SQ SCH (20:25)
[2023-12-01] MEDS: ENOXAPARIN SODIUM 40 MG/0.4 ML DISP.SYRIN SQ SCH (20:29)
[2023-12-01] MEDS: ALBUTEROL SULFATE 2.5 MG/3 ML NEBU NEB SCH (21:02)
[2023-12-01] MEDS: IPRATROPIUM BROMIDE 0.5 MG/2.5 ML NEBU NEB SCH (21:02)
[2023-12-02] VITALS (12 sets, daily range): BP systolic 108–133; BP diastolic 47–73; TEMP 97.5–98.5; O2SAT 95–99
[2023-12-02 00:01] LABS: ABG BASE EXCESS 2.7 mmol/L (-2.0-3.0); ABG HCO3 26.5 mmol/L (21.0-28.0); ABG PCO2 37.9 mmHg (35.0-48.0); ABG PH 7.462 (7.350-7.450); ABG PO2 58.8 mmHg (83.0-108.0); ABG SITE LEFT RADIAL; ABG TOTAL HEMOGLOBIN 14.5 G/dL (13.5-17.5); COHb 1.6 % (0.5-1.5); MetHb 0.3 % (0.0-1.5); O2Hb 88.8 % (94.0-98.0)
[2023-12-02] MEDS: LEVOTHYROXINE SODIUM 100 MCG TABLET PO SCH (06:16)
[2023-12-02 07:20] LABS: BASOPHILS % (AUTO) 0.2 % (0.0-2.0); EOSINOPHILS # (AUTO) 0.1 K/uL (0.0-0.7); EOSINOPHILS % (AUTO) 0.6 % (0.0-7.0); HEMATOCRIT 36.3 % (36.7-47.1); HEMOGLOBIN 11.7 g/dL (12.5-16.3); LYMPHOCYTES # (AUTO) 1.3 K/uL (0.8-4.8); LYMPHOCYTES % (AUTO) 13.8 % (20.5-51.5); MEAN CORPUSCULAR HGB CONC 32 g/dL (32.5-36.3); MEAN CORPUSCULAR VOLUME 93.1 fL (73.0-96.2); MONOCYTES # (AUTO) 0.7 K/uL (0.1-1.30); MONOCYTES % (AUTO) 7.4 % (0.0-11.0); NEUTROPHILS # (AUTO) 7.3 K/uL (1.8-8.9); PLATELET COUNT (AUTO) 213 K/uL (152-348); RED BLOOD CELL COUNT(AUTO) 3.89 MIL/uL (4.06-5.63); RED CELL DISTRIBUTION WIDTH 16.1 % (12.1-16.2); WHITE BLOOD COUNT (AUTO) 9.3 K/uL (3.6-10.2)
[2023-12-02 07:33] LABS: DIFFERENTIAL COMMENT 1
[2023-12-02 07:40] LABS: CALCIUM 9.3 mg/dL (8.5-10.1); CARBON DIOXIDE 32 mmol/L (21-32); CHLORIDE 107 mmol/L (98-107); CREATININE 1.6 mg/dL (0.6-1.3); GLUCOSE 121 mg/dL (74-106); MAGNESIUM 2.1 mg/dL (1.8-2.4); PHOSPHOROUS 3.7 mg/dL (2.5-4.9); POTASSIUM 5.6 mmol/L (3.5-5.1); SODIUM SERUM 144 mmol/L (136-145); UREA NITROGEN, BLOOD 31 mg/dL (7-18)
[2023-12-02] MEDS: CLOPIDOGREL 75 MG TABLET PO SCH (08:42)
[2023-12-02] MEDS: AMIODARONE HCL 200 MG TABLET PO SCH (08:42)
[2023-12-02] MEDS: SODIUM POLYSTYRENE SULFONATE 15 G/60 ML LIQUID UDC PO ONE (09:29)
[2023-12-02] MEDS: IV LACTATED RINGERS SOLUTION 1,000 ML IV PRN (09:29)
[2023-12-02] MEDS: REMEDY ESSENTIAL ZINC PASTE 113 GM TP SCH (13:02)
[2023-12-02] MEDS: CLOTRIMAZOLE 1% CREAM 30 GM TUBE TOP SCH (16:43)
[2023-12-02] MEDS: ZOLPIDEM 5 MG TABLET PO ONE (22:11)
[2023-12-03] VITALS (8 sets, daily range): BP systolic 118–127; BP diastolic 54–68; TEMP 97.4–97.8; O2SAT 89–100
[2023-12-03 07:15] LABS: BASOPHILS % (AUTO) 0.6 % (0.0-2.0); EOSINOPHILS # (AUTO) 0.5 K/uL (0.0-0.7); HEMOGLOBIN 11.7 g/dL (12.5-16.3); LYMPHOCYTES # (AUTO) 1.5 K/uL (0.8-4.8); LYMPHOCYTES % (AUTO) 19.7 % (20.5-51.5); MEAN CORPUSCULAR HEMOGLOBIN 30.1 uug (23.8-33.4); MEAN CORPUSCULAR HGB CONC 33 g/dL (32.5-36.3); MEAN CORPUSCULAR VOLUME 92.7 fL (73.0-96.2); MONOCYTES # (AUTO) 0.8 K/uL (0.1-1.30); MONOCYTES % (AUTO) 10.2 % (0.0-11.0); NEUTROPHILS # (AUTO) 4.8 K/uL (1.8-8.9); NEUTROPHILS % (AUTO) 63.5 % (38.5-71.5); PLATELET COUNT (AUTO) 197 K/uL (152-348); RED BLOOD CELL COUNT(AUTO) 3.88 MIL/uL (4.06-5.63); RED CELL DISTRIBUTION WIDTH 16.5 % (12.1-16.2); WHITE BLOOD COUNT (AUTO) 7.6 K/uL (3.6-10.2)
[2023-12-03 07:19] LABS: CALCIUM 8.8 mg/dL (8.5-10.1); CARBON DIOXIDE 31 mmol/L (21-32); CHLORIDE 106 mmol/L (98-107); CREATININE 1.4 mg/dL (0.6-1.3); GLUCOSE 97 mg/dL (74-106); PHOSPHOROUS 3.7 mg/dL (2.5-4.9); POTASSIUM 3.7 mmol/L (3.5-5.1); SODIUM SERUM 143 mmol/L (136-145); UREA NITROGEN, BLOOD 25 mg/dL (7-18)
[2023-12-03 07:35] LABS: DIFFERENTIAL COMMENT 1
[2023-12-03] MEDS ORDERED: Insulin Glargine,Hum SQ (13:35)
[2023-12-03] MEDS ORDERED: ASCO500T21 PO (13:35)
[2023-12-03] MEDS ORDERED: CLOT30CR24 TOP (13:35)
[2023-12-03] MEDS ORDERED: CEFD300C3 PO (13:35)
[2023-12-03] MEDS ORDERED: ACID1TAB4 PO (13:35)
[2023-12-03] MEDS ORDERED: CEFDINIR 300 MG CAPSULE PO SCH (21:00)
== END 2023-12-03 18:50 | DRG 193 ==
LOC: ER 18:03 → TELE3 21:02 → MEDSURG3 12-02 10:35
PROVIDERS: ATTEND Nurse Practitioner Family
DX: J15.9 Unspecified bacterial pneumonia (principal); G93.41 Metabolic encephalopathy; J96.01 Acute respiratory failure with hypoxia; G91.2 (Idiopathic) normal pressure hydrocephalus; N17.9 Acute kidney failure, unspecified; I45.2 Bifascicular block; E87.20 Acidosis, unspecified; D68.59 Other primary thrombophilia; E11.22 Type 2 diabetes mellitus with diabetic chronic kidney disease; N18.30 Chronic kidney disease, stage 3 unspecified; Z98.2 Presence of cerebrospinal fluid drainage device; J20.8 Acute bronchitis due to other specified organisms; E03.9 Hypothyroidism, unspecified; Z79.890 Hormone replacement therapy; Z79.01 Long term (current) use of anticoagulants; Z79.4 Long term (current) use of insulin; Z79.84 Long term (current) use of oral hypoglycemic drugs; E86.0 Dehydration; F03.90 Unspecified dementia, unspecified severity, without behavioral disturbance, psychotic disturbance, mood disturbance, and anxiety; K57.30 Diverticulosis of large intestine without perforation or abscess without bleeding; N28.1 Cyst of kidney, acquired; N26.1 Atrophy of kidney (terminal); Z74.01 Bed confinement status; Z79.02 Long term (current) use of antithrombotics/antiplatelets; Z86.73 Personal history of transient ischemic attack (TIA), and cerebral infarction without residual deficits; E66.9 Obesity, unspecified; Z68.32 Body mass index [BMI] 32.0-32.9, adult; K59.00 Constipation, unspecified; Z66 Do not resuscitate; Z79.899 Other long term (current) drug therapy
CPT/HCPCS: 36415; 36600; 71045; 83605; 83690; 83735; 84100; 84484; 85025; 85730; 87040; 93005; 93307; 94640; 94664; A4606; A4663; A6213; G0378; J0696; J1100; J1650; J1815; J1956; J3490; J3590; J7040; J7120; Q0144

== ENCOUNTER 2024-10-08 11:07 | Inpatient (IN) | payer MEDICARE, BC ==
[~2024-10-08] VITALS: Ht 165.1 cm; Wt 93.0 kg
[~2024-10-08 11:07] MED LIST changes: +ACID1TAB4 PO; +ASCO500T21 PO; +BETA45OI2 TOP; +CEFD300C3 PO; +CLOT30CR24 TOP; -DAPA10TA PO; -DOCU-141 PO; +IPRA3AMP23 NEB; +Insulin Glargine,Hum SQ; +LEVO100T10 PO; -LEVO125C4 PO; -MENT396L TOP; +MULT-213 PO; +NYST15CR TP; +NYST60PO TP; -SITA50TA PO; +TRIA15CR4 TP; -TRIA80OI2 TOP; -ZINC56.713 TOP; -[UNRECOGNIZED DRUG - CODE] TOP
[2024-10-08] MEDS ORDERED: INSU100V39 SQ (11:34)
[2024-10-08] MEDS ORDERED: INSU3INS6 SQ (11:34)
[2024-10-08] MEDS ORDERED: MIRT-73 PO (11:34)
[2024-10-08] MEDS ORDERED: HYDR-501 PO (11:34)
[2024-10-08] MEDS ORDERED: SENN-18 PO (11:34)
[2024-10-08 11:44] LABS: PLATELET COUNT (AUTO) 319 K/uL (152-348); RED BLOOD CELL COUNT(AUTO) 4.01 MIL/uL (4.06-5.63); RED CELL DISTRIBUTION WIDTH 16.1 % (12.1-16.2); WHITE BLOOD COUNT (AUTO) 8.7 K/uL (3.6-10.2)
[2024-10-08 11:57] LABS: CREATININE 1.7 mg/dL (0.6-1.3); SODIUM SERUM 144 mmol/L (136-145); UREA NITROGEN, BLOOD 31 mg/dL (7-18)
[2024-10-08 12:09] LABS: ASPARTATE AMINOTRANSFERASE 27 U/L (15-37); TOTAL PROTEIN, SERUM 7.5 g/dL (6.4-8.2)
[2024-10-08] MEDS ORDERED: DILTIAZEM HCL 60 MG TABLET ONE (12:32)
[2024-10-08 13:30] VITALS: BP 113/68; TEMP 98.3; O2SAT 98
[2024-10-08] MEDS ORDERED: REMEDY ESSENTIAL ZINC PASTE 113 GM TP PRN (14:15)
[2024-10-08] MEDS ORDERED: MAGNESIUM HYDROXIDE 30 ML LIQUID UDC PO PRN (14:15)
[2024-10-08] MEDS ORDERED: ONDANSETRON 4 MG/2 ML VIAL IV PRN (14:15)
[2024-10-08] MEDS ORDERED: INSULIN REGULAR, HUMAN 1000 UNIT/10 ML VIAL SQ PRN (14:30)
[2024-10-08] MEDS ORDERED: Medication Not On Formulary EA (Benzonatate 200 MG) PO SCH (14:30)
[2024-10-08] MEDS ORDERED: INSULIN REGULAR, HUMAN 300 UNITS/3 ML VIAL SQ PRN (14:30)
[2024-10-08] MEDS ORDERED: DEXTROSE 50% 50 ML DISP.SYRIN IV PRN (14:30)
[2024-10-08] MEDS ORDERED: BISACODYL 10 MG SUPP.RECT RC PRN (14:30)
[2024-10-08] MEDS ORDERED: LACTULOSE PO PRN (14:30)
[2024-10-08] MEDS: IV 1/2NS 1000 ML 1,000 ML IV PRN (15:22)
[2024-10-08] MEDS: ENOXAPARIN SODIUM 40 MG/0.4 ML DISP.SYRIN SQ SCH (15:33)
[2024-10-08 15:40] VITALS: BP 100/56; TEMP 97.4; O2SAT 98
[2024-10-08] MEDS ORDERED: INSULIN LISPRO 1000 UNITS/10 ML VIAL(HUMALOG) SQ SCH (16:30)
[2024-10-08] MEDS ORDERED: INSULIN ASPART 8 UNIT SUBCUT SCH (16:30)
[2024-10-08] MEDS ORDERED: ZINC GLUCONATE 50 MG PO SCH (17:00)
[2024-10-08] MEDS ORDERED: ASCORBIC ACID 500 MG TABLET PO SCH (17:00)
[2024-10-08] MEDS ORDERED: NYSTATIN CREAM 30 GM TUBE TP SCH (17:00)
[2024-10-08] MEDS ORDERED: ZINC OXIDE TOP SCH (17:00)
[2024-10-08] MEDS ORDERED: TRIAMCINOLONE ACET 0.1% CREAM 15 GM TUBE TP SCH (17:00)
[2024-10-08] MEDS ORDERED: ACIDOPHILUS/BULGARICUS CHEW TAB PO SCH (17:00)
[2024-10-08] MEDS ORDERED: Medication Not On Formulary EA (Ascorbic Acid (Vitamin C TAB) 1,000 MG) PO SCH (17:00)
[2024-10-08] MEDS ORDERED: MENTHOL TOP SCH (17:00)
[2024-10-08] MEDS ORDERED: CLOTRIMAZOLE 1% CREAM 30 GM TUBE TOP SCH (17:00)
[2024-10-08] MEDS ORDERED: DOCUSATE SODIUM 100 MG CAPSULE PO SCH (17:00)
[2024-10-08] MEDS ORDERED: BETAMETHASONE DIPROPIONATE TOP SCH (17:00)
[2024-10-08] MEDS: BLOOD SUGAR DIAGNOSTIC 1 EACH STRIP VI SCH (17:01)
[2024-10-08] MEDS: INSULIN REGULAR, HUMAN 1000 UNIT/10 ML VIAL SQ SCH (17:25)
[2024-10-08] MEDS ORDERED: MIRT-93 PO (17:31)
[2024-10-08] MEDS ORDERED: LACTULOSE 20 G/30 ML LIQUID UDC PO PRN (17:45)
[2024-10-08] MEDS ORDERED: HYDR-4209 PO (17:54)
[2024-10-08] MEDS ORDERED: HYDR30OI12 TP (17:56)
[2024-10-08] MEDS ORDERED: HYOS-6 PO (17:57)
[2024-10-08] MEDS ORDERED: LOPE2TAB25 PO (18:06)
[2024-10-08] MEDS ORDERED: LORA0.5T48 PO (18:07)
[2024-10-08] MEDS ORDERED: MORPHINE LIQUID SL (18:09)
[2024-10-08] MEDS ORDERED: ONDA-104 PO (18:10)
[2024-10-08] MEDS: NYSTATIN POWDER 15 GM BOTTLE TP SCH (18:30)
[2024-10-08 20:00] VITALS: BP 119/64; TEMP 97.9; O2SAT 94
[2024-10-08] MEDS: ATORVASTATIN 40 MG TABLET PO SCH (20:49)
[2024-10-08] MEDS: MIRTAZAPINE 15 MG TABLET PO SCH (20:49)
[2024-10-09] MEDS: PANTOPRAZOLE SODIUM 40 MG TABLET.DR PO SCH (06:14)
[2024-10-09] MEDS: LEVOTHYROXINE SODIUM 100 MCG TABLET PO SCH (06:14)
[2024-10-09 06:53] LABS: PLATELET COUNT (AUTO) 287 K/uL (152-348); RED BLOOD CELL COUNT(AUTO) 3.74 MIL/uL (4.06-5.63); RED CELL DISTRIBUTION WIDTH 16.4 % (12.1-16.2); WHITE BLOOD COUNT (AUTO) 6.8 K/uL (3.6-10.2)
[2024-10-09 07:02] VITALS: BP 108/60; TEMP 97.9; O2SAT 96
[2024-10-09 07:10] LABS: CREATININE 1.3 mg/dL (0.6-1.3); SODIUM SERUM 138 mmol/L (136-145); UREA NITROGEN, BLOOD 29 mg/dL (7-18)
[2024-10-09] MEDS: AMLODIPINE 5 MG TABLET PO SCH (08:17)
[2024-10-09] MEDS: AMIODARONE HCL 200 MG TABLET PO SCH (08:17)
[2024-10-09] MEDS: SENNOSIDES 1 TABLET PO SCH (08:17)
[2024-10-09] MEDS: CETIRIZINE HCL 10 MG TABLET PO SCH (08:17)
[2024-10-09] MEDS ORDERED: Medication Not On Formulary EA (Multivitamins W-Minerals (Multivitamin With Minerals) 1 PO SCH (09:00)
[2024-10-09 11:49] VITALS: BP 109/51; TEMP 97.6; O2SAT 97
[2024-10-09] MEDS: MEDIHONEY= THERAHONEY 1.5 OZ TUBE TOP SCH (12:45)
[2024-10-09] MEDS: ARGININE/GLUTAMINE/CALCIUM BMB 1 EACH POWD.PACK PO SCH (14:45)
[2024-10-09 15:54] VITALS: BP 107/50; TEMP 97.8; O2SAT 94
[2024-10-09] MEDS: ZINC SULFATE 220 MG CAPSULE PO SCH (17:43)
[2024-10-09 19:00] VITALS: BP 122/48; TEMP 97.6; O2SAT 96
[2024-10-09] MEDS: MUPIROCIN 2% OINT 22 GM TUBE NS SCH (21:16)
[2024-10-10 06:00] VITALS: BP 128/60; TEMP 97.6; O2SAT 96
[2024-10-10 07:09] LABS: CREATININE 1.4 mg/dL (0.6-1.3); SODIUM SERUM 143 mmol/L (136-145); UREA NITROGEN, BLOOD 27 mg/dL (7-18)
[2024-10-10 07:46] VITALS: BP 119/60; TEMP 97.4; O2SAT 96
[2024-10-10 07:46] LABS: PLATELET COUNT (AUTO) 286 K/uL (152-348); RED BLOOD CELL COUNT(AUTO) 3.86 MIL/uL (4.06-5.63); RED CELL DISTRIBUTION WIDTH 16.2 % (12.1-16.2); WHITE BLOOD COUNT (AUTO) 7.6 K/uL (3.6-10.2)
[2024-10-10] MEDS ORDERED: MUPIROCIN 2% OINT 22 GM TUBE NS SCH (09:00)
[2024-10-10 16:23] VITALS: BP 112/62; TEMP 97.6; O2SAT 97
[2024-10-10 19:00] VITALS: BP 110/82; TEMP 97.8; O2SAT 95
[2024-10-10] MEDS: ZOLPIDEM 5 MG TABLET PO PRN (21:29)
[2024-10-10] MEDS: ACETAMINOPHEN 325 MG TABLET PO PRN (21:30)
[2024-10-11 06:54] VITALS: BP 118/56; TEMP 97.8; O2SAT 97
[2024-10-11 07:10] LABS: PLATELET COUNT (AUTO) 297 K/uL (152-348); RED BLOOD CELL COUNT(AUTO) 3.87 MIL/uL (4.06-5.63); RED CELL DISTRIBUTION WIDTH 16.2 % (12.1-16.2); WHITE BLOOD COUNT (AUTO) 8.1 K/uL (3.6-10.2)
[2024-10-11 07:34] LABS: CREATININE 1.3 mg/dL (0.6-1.3); SODIUM SERUM 143 mmol/L (136-145); UREA NITROGEN, BLOOD 33 mg/dL (7-18)
[2024-10-11 11:50] VITALS: BP 115/58; TEMP 97.7; O2SAT 98
[2024-10-11 16:28] VITALS: BP 117/52; TEMP 97.6; O2SAT 96
[2024-10-11 19:50] VITALS: BP 101/42; TEMP 98.5; O2SAT 97
[2024-10-12 05:53] VITALS: BP 113/53; TEMP 98.4; O2SAT 97
[2024-10-12 06:59] LABS: PLATELET COUNT (AUTO) 293 K/uL (152-348); RED BLOOD CELL COUNT(AUTO) 3.86 MIL/uL (4.06-5.63); RED CELL DISTRIBUTION WIDTH 16.0 % (12.1-16.2); WHITE BLOOD COUNT (AUTO) 7.7 K/uL (3.6-10.2)
[2024-10-12 07:06] LABS: CREATININE 1.3 mg/dL (0.6-1.3); SODIUM SERUM 139 mmol/L (136-145); UREA NITROGEN, BLOOD 34 mg/dL (7-18)
[2024-10-12 11:48] VITALS: BP 97/44; TEMP 97.5; O2SAT 97
[2024-10-12 16:15] VITALS: BP 118/56; TEMP 98.2; O2SAT 97
[2024-10-12 20:28] VITALS: BP 100/50; TEMP 99.5; O2SAT 94
[2024-10-13 04:31] VITALS: BP 132/63; TEMP 98.7; O2SAT 94
[2024-10-13 11:51] VITALS: BP 106/44; TEMP 98.6; O2SAT 98
[2024-10-13 16:02] VITALS: BP 111/52; TEMP 98.5; O2SAT 98
[2024-10-13 19:48] VITALS: BP 104/50; TEMP 98.8; O2SAT 93
[2024-10-14 06:03] VITALS: BP 105/49; TEMP 98.2; O2SAT 97
[2024-10-14 10:56] LABS: PLATELET COUNT (AUTO) 275 K/uL (152-348); RED BLOOD CELL COUNT(AUTO) 3.73 MIL/uL (4.06-5.63); RED CELL DISTRIBUTION WIDTH 16.0 % (12.1-16.2); WHITE BLOOD COUNT (AUTO) 10.3 K/uL (3.6-10.2)
[2024-10-14 11:03] LABS: CREATININE 1.4 mg/dL (0.6-1.3); SODIUM SERUM 138 mmol/L (136-145); UREA NITROGEN, BLOOD 45 mg/dL (7-18)
[2024-10-14 11:12] VITALS: BP 126/62; TEMP 98.3; O2SAT 96
[2024-10-14 15:06] VITALS: BP 119/61; TEMP 98.7; O2SAT 98
[2024-10-14 19:00] VITALS: BP 111/45; TEMP 98.9; O2SAT 94
[2024-10-15 06:00] VITALS: BP 113/59; TEMP 97.7; O2SAT 95
[2024-10-15 07:15] LABS: CREATININE 1.4 mg/dL (0.6-1.3); SODIUM SERUM 142 mmol/L (136-145); UREA NITROGEN, BLOOD 39 mg/dL (7-18)
[2024-10-15 07:23] LABS: PLATELET COUNT (AUTO) 285 K/uL (152-348); RED BLOOD CELL COUNT(AUTO) 3.78 MIL/uL (4.06-5.63); RED CELL DISTRIBUTION WIDTH 16.5 % (12.1-16.2); WHITE BLOOD COUNT (AUTO) 10.3 K/uL (3.6-10.2)
[2024-10-15 12:05] VITALS: BP 109/36; TEMP 98.6; O2SAT 95
[2024-10-15] MEDS: NEUTRA PHOS PACKET PO ONE (12:06)
[2024-10-15] MEDS: MAGNESIUM OXIDE 400 MG TABLET PO ONE (13:20)
== END 2024-10-15 13:23 | DRG 570 ==
LOC: ER 11:07 → MEDSURG3 12:52
PROVIDERS: ADMIT Student in an Organized Health Care Education/Training Program; ATTEND Student in an Organized Health Care Education/Training Program
PROC: 0JB70ZZ Excision of Back Subcutaneous Tissue and Fascia, Open Approach (ICD-10-PCS; principal; 2024-10-13)
DX: L89.153 Pressure ulcer of sacral region, stage 3 (principal); G93.41 Metabolic encephalopathy; N17.0 Acute kidney failure with tubular necrosis; G91.2 (Idiopathic) normal pressure hydrocephalus; E44.0 Moderate protein-calorie malnutrition; D68.59 Other primary thrombophilia; I45.2 Bifascicular block; Z66 Do not resuscitate; Z98.2 Presence of cerebrospinal fluid drainage device; E03.9 Hypothyroidism, unspecified; L89.323 Pressure ulcer of left buttock, stage 3; L89.313 Pressure ulcer of right buttock, stage 3; E88.09 Other disorders of plasma-protein metabolism, not elsewhere classified; Z74.01 Bed confinement status; E11.22 Type 2 diabetes mellitus with diabetic chronic kidney disease; N18.30 Chronic kidney disease, stage 3 unspecified; I48.91 Unspecified atrial fibrillation; Z79.890 Hormone replacement therapy; Z79.4 Long term (current) use of insulin; Z79.899 Other long term (current) drug therapy; F03.90 Unspecified dementia, unspecified severity, without behavioral disturbance, psychotic disturbance, mood disturbance, and anxiety; I65.29 Occlusion and stenosis of unspecified carotid artery; Z79.02 Long term (current) use of antithrombotics/antiplatelets; Z79.01 Long term (current) use of anticoagulants; Z86.73 Personal history of transient ischemic attack (TIA), and cerebral infarction without residual deficits; D64.9 Anemia, unspecified; D72.829 Elevated white blood cell count, unspecified; Z22.322 Carrier or suspected carrier of Methicillin resistant Staphylococcus aureus; E66.9 Obesity, unspecified; Z68.32 Body mass index [BMI] 32.0-32.9, adult; Z91.018 Allergy to other foods; N25.0 Renal osteodystrophy
CPT/HCPCS: 36415; 71045; 83735; 84100; 85025; A4606; A4663; A6209; A6213; G0378; J1650; J1815